=== PATIENT | female | born 1960 | race Caucasian/White ===

== ENCOUNTER 2022-10-20 11:01 | Outpatient (CLI) | payer BC, SELFPAY | END 2022-10-20 11:02 | disposition home or self-care (01) | PROVIDERS: PCP Family Medicine; Visit Provider Nurse Practitioner Family | DX: M25.473 Effusion, unspecified ankle (principal) | CPT/HCPCS: 84550; 86140; 86431; 86618 ==

== ENCOUNTER 2023-08-26 09:59 | Outpatient (RCR) | payer BC, SELFPAY | END 2023-11-21 13:33 | disposition home or self-care (01) | PROVIDERS: PCP Family Medicine; Visit Provider Family Medicine | DX: M25.511 Pain in right shoulder (principal); G89.29 Other chronic pain; M25.611 Stiffness of right shoulder, not elsewhere classified; M62.81 Muscle weakness (generalized); Z51.89 Encounter for other specified aftercare | CPT/HCPCS: 97110; 97161 ==

== ENCOUNTER 2024-07-24 09:30 | Outpatient (CLI) | payer BC, SELFPAY | END 2024-07-24 09:31 | disposition home or self-care (01) | LOC: NFLDUCREF 09:30 | PROVIDERS: PCP Family Medicine; Visit Provider Physician Assistant | DX: M10.9 Gout, unspecified (principal) | CPT/HCPCS: 84550 ==

== ENCOUNTER 2025-01-26 18:41 | Emergency (ER) | payer BC, SELFPAY ==
--- OUTSIDE RECORDS SUMMARY | 2025-01-26 18:43 | XMS_ITS | Clinical Summary ---
Author Organization [facility] Address [address] [place] [address] Care Team Providers Care Fire Sprinkler Designer Name Role Phone Pam Dewitt DO Primary Care Provider [phone] Allergies No known active allergies Medications No known medications Active Problems Problem Noted Date Diagnosed Date Family history of colonic polyps 06/03/2024 Overview (06/03/2024): Colonoscopy 05/2024 diverticuli, repeat in 5 years Type 2 diabetes mellitus wit hout complication, without long-term current use of insulin 05/19/2021 Anemia 05/02/2021 Hiatal hernia 04/13/2020 Gastroesophageal reflux disease with esophagitis 04/13/2020 H/O LEEP 04/03/2019 Overview (11/16/2024): Per 10/28/2024 OV: History of ASC-H pap and AROLDO-1 colposcopy per care everywhere. Her last 2 pap smears have been NIL and negative HPV. LEEP per surgical hx 12/2020 UNS/HPV negative 01/2024 NIL/HPV negative 10/2024 UNS/HPV negative. Plan: Pap/HPV due 10/2025. 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 Resolved Problems Problem Noted Date Diagnosed Date Resolved Date Prediabetes 05/02/2021 05/19/2021 Encounters Date Type Department Care Team Description 01/26/2025 Nurse Triage [facility] [address] [facility] [address] Sir Dewitti Dotty, DO Leg Pain/problem 12/25/2024 8:10 AM CDT Office Visit [facility] [address] [facility] [place] [address] Estephania Ordonez PA Follow Up (Diverticulitis) 12/25/2024 Travel 12/22/2024 1:30 PM CDT Ancillary Procedure [facility] [address] [facility] [address] 12/22/2024 12:55 PM CDT Office Visit [facility] [address] [facility] [address] Estephania Ordonez PA Abdominal Pain 12/22/2024 Travel 12/22/2024 Nurse Triage [facility] [address] [place] [address] Sir Dewitti Dotty, DO Abdominal Pain 11/18/2024 1:00 PM CDT Ancillary Procedure [facility] [address] [facility] [address] 11/18/2024 Orders Only [address] [facility] [place] [address] Renate Pam Dotty, DO <No scans attached> 11/18/2024 Telephone [facility] [address] [place] [address] Sir Dewitti Dotty, DO Results 11/18/2024 Travel 11/13/2024 Orders Only [facility] Scanner 1 scan: (1-Ord) [facility], DIABETIC EYE EXAM REPORT, 11/13/2024 11/09/2024 11:25 AM CDT Office Visit [facility] [address] [facility] [place] [address] Sir Dewitti Dotty, DO UTI (Blood in urine x4-5 days? 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 Cousin x2 , Pat. Cousin x1 Unknown Paternal Grandfather Unknown Paternal Grandmother Good Health Sister 1 Colon polyps Sister 2 Good Health Son Anesthesia Malignant Hyperthermia No Family History Blood Disease No Family History Cancer-ovarian No Family History Relation Name Status Comments Brother Daughter 1 Daughter 2 Father Maternal Grandfather Maternal Grandmother Mother Alive Other Cousins Paternal Grandfather Paternal Grandmother Sister 1 Sister 2 Son Social History Tobacco Use Types Packs/Day Years Used Date Smoking Tobacco: Never Smokeless Tobacco: Never Tobacco Cessation:Counseling Given: Yes Alcohol Use Standard Drinks/Week Comments Never 0 (1 standard drink = 0.6 oz pur e alcohol) PHQ-2 Answer Date Recorded PHQ-2 TOTAL SCORE 0 10/28/2024 Social Connections Answer Date Recorded Do you often feel lonely or isolated from those around you? 0 12/22/2024 Financial Resource Strain Answer Date R ecorded Difficulty of Paying Living Expenses 3 12/22/2024 Difficulty of Paying Living Expenses Not on file 12/22/2024 Food Insecurity Answer Date Recorded Do you worry your food will run out before you are able to buy more? 1 12/22/2024 Transportation Needs Answer Date Record ed Does lack of transportation keep you from medica l appointments? 1 12/22/2024 Does lack of transportation keep you from work, meetings or getting things that you need? 1 12/22/2024 Housing Stability Answer Date Recorded What is your housing situation today? 1 12/22/2024 Utilities Answer Date Recorded Do you have trouble paying f or utilities (for example, heat, electricity, water, phone)? 1 12/22/2024 Comments No Sex and Gender Information Value Date Recorded Sex Assigned at Not on file Legal Sex Female 4:41 PM CDT Gender Identity Not on file Sexual Orientation Not on file Obstetrics History Last Filed Vital Signs Vital Sign Reading Time Taken Comments Blood Pressure 125/81 12/25/2024 8:19 AM CDT Pulse 61 12/25/2024 8:19 AM CDT Temperature 36.7 C (98 F) 12/22/2024 1:00 PM CDT Respiratory Rate 16 07/24/2021 9:03 AM PLUM PACKER Oxygen Saturation 96% 12/25/2024 8:19 AM CDT Inhaled Oxygen Concentration - - Weight 88.8 kg (195 lb 12.8 oz) 025 11:29 AM CDT Height 159 cm (5' 2.6) 10/28/2024 1:12 PM CDT Body Mass Index 35.13 10/28/2024 1:12 PM CDT Plan of Treatment Upcoming Encounters Date Type Department Care Team (Late st Contact Info) Description 02/04/2025 7:40 AM CDT Office Visit [facility] [address] [place] [address] Pam Dewitt, [address] [place] [address] 02/10/2025 1:20 PM CDT Office Visit [facility] [address] [facility] [address] [place] [address] [address] [facility] [address] [facility] [place], [place] [id number] Health Maintenance Due Date Last Done Comments Pneumococcal series for age 50+ (1 of 2 - PCV) 1979 Zoster (shingles) series for age 50+ (1 of 2) 2010 Tetanus booster 06/02/2019 06/02/2009 RSV vaccine for adults or (1 - Risk 60-74 years 1-dose series) 2020 COVID-19 vaccine series ( season) 2024 Influenza Vaccine (#1) 2025 5, 08/04/2013, 06/12/2012 Mammogram for age 45-75 09/07/2025 09/07/19 25, 08/02/2023, 07/04/2022, Additional history exists BMI (ht and wt on same day) for age 18+ 10/28/2025 10/28/2024, 05/26/2024, 08/13/2023, Additional history exists Depression screening for age 12+ 10/28/2025 10/28/2024, 06/27/2022, 06/12/2021, Additional history exists Pap test for age 21-65 10/28/2025 , 02/06/2021, 02/06/2021, Additional history exists Colonoscopy through age 75 06/03/2029 06/03/2024, Lipids for age 45-75 10/28/2029 10/28/2024, 06/27/20 22 HIV for age 15-65 Completed 10/28/2024 Hepatitis C screening for age 18-79 Completed 10/28/2024 Hepatitis B series for 19+ Aged Out N o longer eligible based on patient's age to complete this topic Procedures Procedure Name Priority Date/Time Associated Diagnosis Comments CT ABDOMEN PELVIS W STAT 12/22/2024 1 :56 PM CDT Abdominal pain, LLQ (left lower quadrant) US PELVIS COMPLETE TA AND TV TREY 11/18/2024 1:30 PM CDT Abnormal uterine bleeding SCAN-EYE EXAM 11/13/2024 12:00 AM CDT URINALYSIS MICROSCOPIC Routine 11/09/2024 11:57 AM CDT Hematuria, unspecified type URINE CULTURE Routine 11/09/2024 11:57 AM CDT Hematuria, unspecified type URINALYSIS MACROSCOPIC - [facility] ONLY POC DIP ([facility]) Routine 11/09/2024 11:57 AM CDT Hematuria, unspecified type CHIP FRIER THIN PREP PAP SCREEN IMAGED- Unsuccessful Attempt Routine 10/28/2024 2:24 PM CDT Pap smear for cervical cancer screening HPV HIGH RISK Routine 10/28/2024 2:24 PM CDT Pap smear for cervical cancer screening ANTI HCV Routine 10/28/2024 2:15 PM CDT Need for hepatitis C screening test ANTI HIV 1/2 Routine 10/28/2024 2:15 PM CDT Screening for HIV (human immunodeficiency virus) LIPID PANEL W REFLEX MEASURED LDL Routine 10/28/2024 2:15 PM CDT Type 2 diabetes mellitus without complication, without long-term current use of insulin (HC) BASIC METABOLIC PANEL Routine 10/28/2024 2:15 PM CDT Type 2 diabetes mellitus without complication, without long-term current use of insulin (HC) HEMOGLOBIN A1C MONITORING (POCT) Routine 10/28/2024 2:14 PM CDT Type 2 diabetes mellitus without complication, without long-term current use of insulin (HC) XR MAMMO JASWANT BILAT SCREEN Routine 09/07/2024 8:57 AM PLUM PACKER Visit for screening mammogram SCAN-COLONOSCOPY 06/03/2024 12:0 0 AM PLUM PACKER from Last 3 Months or Most Recently Relevant to Health Maintenance Results * CT ABDOMEN PELVIS W (12/22/2024 1:56 PM CDT) Anatomical Region Laterality Modality Abdomen, Pelvis, AORTA, LIVER, SPLEEN Computed Tomography 12/22/2024 2:12 PM CDT Impressions 12/22/2024 2:12 PM CDT Findings suggestive of uncomplicated sigmoid diverticulitis. Please note that all CT scans at this facility use dose modulation, iterative reconstruction, and/or weight-based dosing when appropriate to reduce radiation dose to as low as reasonably achievable. Dictated by Rommel Gamez MD @ 12/22/2024 2:12:43 PM (Electronically Signed) Narrative 12/22/2024 2:12 PM CDT For Patients: As a result of the Cures Act, medical imaging exams and procedure reports are released immediately into your electronic medical record. You may view this report before your referring provider. If you have questions, please contact your health care provider. INDICATION: Left lower quadrant pain. TECHNIQUE: CT abdomen and pelvis acquired with 100 cc Omnipaque 350 IV contrast. COMPARISON: None. FINDINGS: Lower chest: Mild subsegmental atelectasis. Liver: Unremarkable. Normal in size and attenuation. No suspicious masses. Gallbladder and bile ducts: Cholecystectomy. No biliary dilatation. Pancreas: Unremarkable. No mass or inflammation. Spleen: Unremarkable. Normal in size. No masses. Adrenal glands: Unremarkable. No nodules. Kidneys: Unremarkable. No suspicious masses, stones, or hydronephrosis. GI tract: Moderate hiatal hernia. Normal in caliber. Sigmoid diverticuli with mild perisigmoid inflammatory changes (2/187). No associated focal fluid collection. Normal appendix. Vasculature: Mild vascular calcifications. Abdominal aorta is normal in caliber. Mesenteric arteries are patent. Lymph nodes: No pathologic lymphadenopathy. Peritoneum/Abdominal Wall: No pneumoperitoneum. Pelvis: Bladder is unremarkable. Reproductive organs are unremarkable. Bones: Unremarkable for age. Procedure Note Rommel Gamez MD - 12/22/2024 For Patients: As a result of the s Act, medical imagingexams and procedure reports are released immediately into your electronicmedical record. You may view this report before your referring provider.If you have questions, please contact your health care provider. INDICATION: Left lower quadrant pain. TECHNIQUE: CT abdomen and pelvis acquired with 100 cc Omnipaque 350 IV contrast. COMPARISON: None. FINDINGS: Lower chest: Mild subsegmental atelectasis. Liver: Unremarkable. Normal in size and attenuation. No suspicious masses. Gallbladder and bile ducts: Cholecystectomy. No biliary dilatation. Pancreas: Unremarkable. No mass or inflammation. Spleen: Unremarkable. Normal in size. No masses. Adrenal glands: Unremarkable. No nodules. Kidneys: Unremarkable. No suspicious masses, stones, or hydronephrosis. GI tract: Moderate hiatal hernia. Normal in caliber. Sigmoid diverticuliwith mild perisigmoid inflammatory changes (2/187). No associated focalfluid collection. Normal appendix. Vasculature: Mild vascular calcifications. Abdominal aorta is normal incaliber. Mesenteric arteries are patent. Lymph nodes: No pathologic lymphadenopathy. Peritoneum/Abdominal Wall: No pneumoperitoneum. Pelvis: Bladder is unremarkable. Reproductive organs are unremarkable. Bones: Unremarkable for age. IMPRESSION: Findings suggestive of uncomplicated sigmoid diverticulitis. Please note that all CT scans at this facility use dose modulation,iterative reconstruction, and/or weight-based dosing when appropriate toreduce radiation dose to as low as reasonably achievable. Dictated by Rommel Gamez MD @ 12/22/2024 2:12:43 PM (Electronically Signed) Estephania POTTS CT Final Result * US PELVIS COMPLETE TA AND TV (11/18/2024 1:30 PM CDT) Anatomical Region Laterality Modality Pelvis Ultrasound 11/18/2024 4:15 PM CDT Impressions 11/18/2024 4:15 PM CDT 1. Normal postmenopausal endometrial stripe thickness at 4 mm. 2. Intramural or submucosal right uterine body fibroid measuring up to 2.0 cm, previously measuring up to 2.4 cm. Dictated by Reji Pagan MD @ 11/18/2024 4:15:25 PM (Electronically Signed) Narrative 11/18/2024 4:15 PM CDT For Patients: As a result of the Century Cures Act, medical imaging exams and procedure reports are released immediately into your electronic medical record. You may view this report before your referring provider. If you have questions, please contact your health care provider. INDICATION: Abnormal uterine bleeding TECHNIQUE: Transabdominal and transvaginal scanning was performed. Transvaginal scanning was performed to optimally evaluate the endometrium and adnexa. Ovarian blood flow was evaluated with color-flow and pulsed Doppler. COMPARISON: Pelvic ultrasound of 09/21/2021 FINDINGS: The uterus is normal in size and shape. The uterus measures 7.1 x 3.5 x 3.5 cm. An intramural or submucosal right uterine body fibroid measuring 2.0 x 2.0 x 1.9 cm is demonstrated. This was previously measured at 2.4 x 1.9 x 1.6 cm. The postmenopausal endometrial stripe is normal in thickness at 4 mm. The ovaries are normal in size. The right ovary measures 1.8 x 1.5 x 0.9 cm and left 1.4 x 1.4 x 0.9 cm. Ovarian blood flow is demonstrated with color-flow and pulsed Doppler. No adnexal mass is evident. No free fluid is demonstrated. Procedure Note Reji Pagan MD - 11/18/2024 For Patients: As a result of the Century Cures Act, medical imagingexams and procedure reports are released immediately into your electronicmedical record. You may view this report before your referring provider.If you have questions, please contact your health care provider. INDICATION: Abnormal uterine bleeding TECHNIQUE: Transabdominal and transvaginal scanning was performed. Transvaginalscanning was performed to optimally evaluate the endometrium and adnexa.Ovarian blood flow was evaluated with color-flow and pulsed Doppler. COMPARISON: Pelvic ultrasound of 09/21/2021 FINDINGS: The uterus is normal in size and shape. The uterus measures 7.1 x 3.5 x3.5 cm. An intramural or submucosal right uterine body fibroid measuring2.0 x 2.0 x 1.9 cm is demonstrated. This was previously measured at 2.4 x1.9 x 1.6 cm. The postmenopausal endometrial stripe is normal in thicknessat 4 mm. The ovaries are normal in size. The right ovary measures 1.8 x 1.5 x 0.9cm and left 1.4 x 1.4 x 0.9 cm. Ovarian blood flow is demonstrated withcolor-flow and pulsed Doppler. No adnexal mass is evident. No free fluid is demonstrated. IMPRESSION: 1. Normal postmenopausal endometrial stripe thickness at 4 mm. 2. Intramural or submucosal right uterine body fibroid measuring up to 2.0cm, previously measuring up to 2.4 cm. Dictated by Reji Pagan MD @ 11/18/2024 4:15:25 PM (Electronically Signed) us Pam Dewitt DO US Final Result * SCAN-EYE EXAM (11/13/2024 12:00 AM CDT) us Scanner OTHER Final Result * POCT Urinalysis Dipstick Only [[id number]] (11/09/2024 11:57 AM CDT) PH 5.5 5.0 - 8.0 [facility] SPECIFIC GRAVITY 1.025 1.001 - 1.035 [facility] GLUCOSE NEGATIVE NEGATIVE [facility] BILIRUBIN NEGATIVE NEGATIVE [facility] KETONES NEGATIVE NEGATIVE [facility] OCCULT BLOOD NEGATIVE NEGATIVE [facility] PROTEIN NEGATIVE NEGATIVE [facility] NITRITE NEGATIVE NEGATIVE [facility] LEUKOCYTE ESTERASE NEGATIVE NEGATIVE [facility] Urine URINE SPECIMEN / Unknown 11/09/2024 11:57 AM CDT 11/09/2024 11:57 AM CDT us Pam Dewitt DO URINE Final Result Performing Organization Address City/State/[facility] Co de Phone Number [facility] [address] [place] [address], [facility] [address] [place] [address] * URINALYSIS MICROSCOPIC [77597.1] - routine (11/09/2024 11:57 AM CDT) RBC 0-2 0-2, None Seen /HPF 11/10/2024 1:10 AM CDT [facility] WBC 0-2 0-2, 3-5, None Seen /HPF 11/10/2024 1:10 AM CDT [facility] BACTERIA None Seen None Seen, Rare, Few Bacteria/ HPF 11/10/2024 1:10 AM CDT [facility] EPITHELIAL CELLS None Seen None Seen, Few Epi/HPF 11/10/2024 1:10 AM CDT [facility] HYALINE CASTS 0-2 0-2, 3-5 /LPF 11/10/2024 1:10 AM CDT [facility] Urine URINE SPECIMEN / Unknown Non-Blood / Unknown 11/09/2024 11:57 AM CDT 11/09/2024 11:57 AM CDT Pam Dewitt DO URINE Final Result Performing Organization Address City/[facility]/ZIP Co de Phone Number [facility] [address] [place] [address], [place] * URINE CULTURE [73915.2] (11/09/2024 11:57 AM CDT) CULTURE No growth (<1,000 CFU/mL) 11/11/2024 7:56 AM CDT [facility] Urine URINE SPECIMEN / Unknown Non-Blood / Unknown 11/09/2024 11:57 AM CDT 11/09/2024 11:57 AM CDT Pam Dewitt DO MICROBIOLOGY Final Result Performing Organization Address [facility] Co de Phone Number [facility] [address] [place] [address], [place] * CHIP FRIER THIN PREP PAP SCREEN IMAGED (10/28/2024 2:24 PM CDT) - Unsuccessful Attempt Case Report Gynecologic Cytology Report Case: [id number] Authorizing Provider: Nina Curtis MD Collected: 10/28/2024 1424 Ordering Location: [facility] Received: 10/28/2024 1424 Clinic First Screen: Amarilis Ramon Rescreen: Galen Polk Specimen: CHIP FRIER ThinPrep Vial Screening, Cervical 11/15/2024 10:27 AM CDT [facility] INTERPRETATION/ RESULT UNSATISFACTORY FOR EVALUATION (UNS) (none) 11/15/2024 10:27 AM CDT [facility] at 1027 CDT SPECIMEN ADEQUACY Specimen processed and examined, but unsatisfactory for evaluation of epithelial abnormality because of: Scant cellularity 11/15/2024 10:27 AM CDT [facility] HPV REQUEST HPV and PAP 11/15/2024 10:27 AM CDT [facility] Date of LMP n/a 11/15/2024 10:27 AM CDT [facility] Last Pap Date 02/06/21 11/15/2024 10:27 AM CDT [facility] Last Pap Result NIL 10:27 AM CDT [facility] Abnormal Pap or [place] Bx in last 5 years No 11/15/2024 10:27 AM CDT [facility] Menstrual Status Postmenopausal 11/15/2024 10:27 AM CDT [facility] [place] Bx Done Today No 11/15/2024 10:27 AM CDT [facility] Additional Information None given 11/15/2024 10:27 AM CDT [facility] Comment: Cytology is screened at [facility] - [address] [address] and [facility] - [address] [place] [address] and [facility] - [address] [place] [address] Interpreted at [facility] - [address], [place] [address] Automated Review Successful 11/15/2024 10:27 AM T [facility] Comment:Specimen processed s uccessfully by automated clothes ironer device, ThinPrep Imaging System, [employer] ANCILLARY TESTING CHIP FRIER HPV Ordered, Please see separate report 11/15/2024 10:27 AM T [facility] Note The pap test is a screening technique, not a diagnostic procedure. It is used primarily to screen for squamous cancers and precursor lesions. Published studies have shown that it is subject to both false negative and false positive results. The pap test should not be used as the sole means to diagnose or exclude pre-malignant and malignant lesions. 11/15/2024 10:27 AM CDT [facility] Other (Cervical) Non-Blood / Unknown 10/28/2024 2:24 PM CDT 10/28/2024 2:24 PM CDT Nina Curtis MD PATHOLOGY/CYTOLOGY Final Re sult Performing Organization Address City/[facility]/ZIP Co de Phone Number [facility] [address] [place] [address], * HPV HIGH RISK (10/28/2024 2:24 PM CDT) TYPE 16 Negative Negative 10/31/2024 1:04 PM CDT [facility] TYPE 18 Negative Negative 10/31/2024 1:04 PM CDT [facility] OTHER HIGH RISK TYPES Negative Negative 10/31/2024 1:04 PM CDT [facility] Other (Cervical) Non-Blood / Unknown 10/28/2024 2:24 PM CDT 10/29/2024 9:00 AM CDT Narrative [facility] - 10/31/2024 1:04 PM CDT HPV types 16, 18, 31, 33, 35, 39, 45, 51, 52, 56, 58, 59, 66 and 68 DNA were undetectable or below the pre-set threshold. Methodology: Gage Brien 4800 HPV Test Nina Curtis MD MICROBIOLOGY Final Resul t Performing Organization Address [facility]/ZIP Co de Phone Number [facility] [address] [place] [address], * LIPID PANEL W REFLEX MEASURED LDL (10/28/2024 2:15 PM CDT) CHOLESTEROL, TOTAL 175 <200 mg/dL [facility] HDL CHOLESTEROL 56 > OR = 50 mg/dL [facility] TRIGLYCERIDES 118 <150 mg/dL [facility] LDL-CHOLESTEROL 98 mg/dL (calc) [facility] Comment: Reference range: <100 Desirable range <100 mg/dL for primary prevention; <70 mg/dL for patients with CHD or diabetic patients with > or = 2 CHD risk factors. LDL-C is now calculated using the Rukhsana calculation, which is a validated novel method providing better accuracy than the Friedewald equation in the estimation of LDL-C. Tone SS et al. SULEIMAN. 2013;310(19): 6351-8540 (http://education.[employer]/faq/TDY793) CHOL/HDLC RATIO 3.1 <5.0 (calc) [facility] NON HDL CHOLESTEROL 119 <130 mg/dL (calc) [facility] Comment: For patients with diabetes plus 1 major ASCVD risk factor, treating to a non-HDL-C goal of <100 mg/dL (LDL-C of <70 mg/dL) is considered a therapeutic option. Blood BLOOD SPECIMEN / Unknown 10/28/2024 2:15 PM CDT 10/28/2024 2:17 PM CDT us Nina Curtis MD CHEMISTRY Final Resul t [employer] [facility] [address] [place] [address], [facility] [address] * ANTI HCV (10/28/2024 2:15 PM CDT) HEPATITIS C ANTIBODY NON-REACTI VE NON-REACT RAGHAVENDRA [facility] Comment: HCV antibody was non-reactive. There is no laboratory evidence of HCV infection. In most cases, no further action is required. However, if recent HCV exposure is suspected, a test for HCV RNA (test code 46042) is suggested. For additional information please refer to http://Dealo.[employer]/faq/AJH31v8 (This link is being provided for informational/ educational purposes only.) Blood BLOOD SPECIMEN / Unknown 10/28/2024 2:15 PM CDT 10/28/2024 2:17 PM CDT Nina Curtis MD SEND OUTS Final Resul t Performing Organization Address [facility] Co de Phone Number [employer] [facility] [address] [facility] [address], [place] [address] [facility] [address] * ANTI HIV 1/2 [23079.0] (10/28/2024 2:15 PM CDT) HIV AG/AB, 4TH GEN NON-REACT RAGHAVENDRA NON-REACT RAGHAVENDRA [facility] [place] Comment: HIV-1 antigen and HIV-1/HIV-2 antibodies were not detected. There is no laboratory evidence of HIV infection. PLEASE NOTE: This information has been disclosed to you from records whose confidentiality may be protected by state law. If your state requires such protection, then the state law prohibits you from making any further disclosure of the information without the specific written consent of the person to whom it pertains, or as otherwise permitted by law. A general authorization for the release of medical or other information is NOT sufficient for this purpose. For additional information please refer to http://education.[employer].Forcura/faq/FUK624 (This link is being provided for informational/ educational purposes only.) The performance of this assay has not been clinically validated in patients less than 2 years old. Blood BLOOD SPECIMEN / Unknown 10/28/2024 2:15 PM CDT 10/28/2024 2:17 PM CDT Nina Curtis MD SEND OUTS Final Resul t [employer] [facility] [address] [facility] [place] [address], [place] [phone] [place] [address] [facility] [place] [address] * BASIC METABOLIC PANEL (10/28/2024 2:15 PM CDT) Pathologist [facility] GLUCOSE 91 65 - 99 mg/dL [facility] Comment: Fasting reference interval UREA NITROGEN (BUN) 10 7 - 25 mg/dL [facility] CREATININE 0.80 0.50 - 1.05 mg/dL [facility] EGFR 82 > OR = 60 mL/min/1. 73m2 [facility] BUN/CREATININE RATIO SEE NOTE: 6 - 22 (calc) [facility] Comment: Not Reported: BUN and Creatinine are within reference range. SODIUM 138 135 - 146 mmol/L [facility] POTASSIUM 4.0 3.5 - 5.3 mmol/L [facility] CHLORIDE 104 98 - 110 mmol/L [facility] CARBON DIOXIDE 26 20 - 32 mmol/L [facility] ELECTROLYTE BALANCE 8 7 - 17 mmol/L (calc) [facility] CALCIUM 9.2 8.6 - 10.4 mg/dL [facility] Blood BLOOD SPECIMEN / Unknown 10/28/2024 2:15 PM CDT 10/28/2024 2:17 PM CDT us Nina Curtis MD CHEMISTRY Final Resul t [employer] [facility] [address] [place] [address], [facility] [address] [place] [address] * (ABNORMAL) HEMOGLOBIN A1C MONITORING (POCT) (10/28/2024 2:14 PM CDT) [facility] POC HEMOGLOBIN A1C 6.6(H) <6.0 % OF TOTAL HGB [facility] Comment: Any point of care results exhibiting inconsistency with the patient's clinical status should be repeated using a different testing method. Blood BLOOD SPECIMEN / Unknown 10/28/2024 2:14 PM CDT 10/28/2024 2:15 PM CDT us Nina Curtis MD CHEMISTRY Final Resul t [facility] [address] [place] [address], [place] [phone] [facility] [address] [place] [address] * XR MAMMO JASWANT BILAT SCREEN (09/07/2024 8:57 AM PLUM PACKER) Anatomical Region Laterality Modality BREASTS, Breast Left, Breast Right Bilateral Mammography Impressions 09/07/2024 11:33 AM PLUM PACKER There is no radiographic evidence for malignancy. Recommend annual mammograms. MAMMOGRAM ASSESSMENT: ACR 1 Negative PATIENTS: You will also receive a letter with your examination results in an easy to read format. If you have questions about your results, please contact your referring provider. Narrative 09/07/2024 11:33 AM PLUM PACKER For Patients: As a result of the Cures Act, medical imaging exams and procedure reports are released immediately into your electronic medical record. You may view this report before your referring provider. If you have questions, please contact your health care provider. XR MAMMO JASWANT BILAT SCREEN [[id number]] CLINICAL HISTORY: This is an asymptomatic 64 y.o. patient. INDICATION FOR EXAM: Mammogram Screening. TECHNIQUE: CC & MLO views were obtained. This study was evaluated with the assistance of Computer-Aided Detection. Breast Tomosynthesis was used in interpretation. COMPARISON FILM: Yes 08/02/23 [facility] [place] 07/04/22 [facility] FINDINGS: There are scattered areas of fibroglandular density. There are no dominant masses, suspicious micro calcifications or areas of architectural distortion. 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
[2025-01-26 18:48] VITALS: BP 174/78; PULSE 74; RESP 18; TEMP 36.8; O2SAT 97; BMI 32.2
--- NOTE | 2025-01-26 19:06 | CRLHL7_ITS ---
For Patients: As a result of the Century Cures Act, medical imaging exams and procedure reports are released immediately into your electronic medical record. You may view this report before your referring provider. If you have questions, please contact your health care provider. INDICATION: Right-sided chest pain. TECHNIQUE: Chest 2 view. COMPARISON: None. FINDINGS: Cardiovascular: Heart size and pulmonary vasculature are within normal limits. Lungs and pleural spaces: The lungs are clear. No sign of pleural effusion. No pneumothorax identified. Bones and soft tissues: Mild eventration of the right anterior hemidiaphragm. Surgical clips right upper quadrant. Probable small hiatal hernia. Degenerative changes of the spine. IMPRESSION: No acute cardiopulmonary findings. Dictated by Martha Mota MD @ 01/26/2025 7:52:41 PM (Electronically Signed)
[2025-01-26 19:48] LABS: Hematocrit 44.0 % (33.0-51.0); Hemoglobin* 14.0 gm/dL (12.0-16.0); Immature Granulocytes Abs Auto 0.01 K/uL (0.00-0.30); Immature Granulocytes Pct Auto 0.2 %; Lymphocytes Absolute Auto 2.41 K/uL (0.90-2.90); Mean Corpuscular HGB Conc 32 gm/dL (32-36); Mean Corpuscular Hemoglobin 27 pg (26-34); Mean Corpuscular Volume 85 fL (80-100); RDW Coefficient of Variation % 13.9 % (11.5-15.5); Red Blood Count 5.21 m/uL (4.00-5.20); White Blood Count* 5.60 K/uL (4.50-11.00)
[2025-01-26 19:51] LABS: Slide Review Reflex No
--- NOTE | 2025-01-26 19:54 | ED.GENADULT ---
HPI - General Adult General Date Seen: 01/26/25 Chief complaint: Unspecified Complaint, Adult Stated complaint: Chest pain and lower back pain Time Seen by Provider: 01/26/25 18:58 Source: patient Mode of arrival: ambulatory Limitations: no limitations History of Present Illness HPI narrative: Patient is a 64 year female presenting for right thigh discomfort but was sent to the emergency department because she had an episode of chest pain yesterday. She states she was diagnosed with sciatica in the past and was just seen for it at her primary care office 3 weeks ago. Has had issues with sciatica multiple times in the past but states this thigh pain is new. States since then she will feel like the leg will sometimes want to give out. It has not given out yet. Denies any saddle anesthesia, urinary retention, urinary or bowel incontinence, fevers, chills. States when she was trying to call the clinic today to schedule an appointment she mentioned that she had an episode of right-sided chest pain. Due to this she was told to come to the emergency department. She has not had any further chest pain. After the episode chest pain she also had a short episode of a headache. She this chest pain 1 other time 1 week ago. Other than that she states she had it several years ago. Due to the chest pain she was told to come to the emergency department. No history of blood clots. No history of heart disease. No other concerns noted at this time. Denies shortness of breath, weakness, numbness, abdominal pain. No other concerns noted at this time Related Data Home Medications ?Medication ?Instructions ?Recorded ?Confirmed No Known Home Medications 01/26/25 01/26/25 Allergies Allergy/AdvReac Type Severity Reaction Status Date / Time No Known Drug Allergies Allergy Verified 01/26/25 18:53 Review of Systems Status of ROS: Reports: 10 or more systems reviewed and unremarkable except as noted in History and below [facility] Medical History (Updated 01/26/25 @ 20:37 by Tate Aguilar DO) Encounter for screening for severe acute respiratory syndrome coronavirus 2 (SARS-CoV-2) infection ?Z11.52 - Encounter for screening for COVID-19 (ICD-10) Ankle swelling ?M25.473 - Effusion, unspecified ankle (ICD-10) Surgical History (Updated 11/22/23 @ 09:25 by Hayde Burt ~ [facility], [facility]) History of gastric surgery (2019) ?Z98.890 - Other specified postprocedural states (ICD-10) History of laparoscopic cholecystectomy (10/05/21) ?Z90.49 - Acquired absence of other specified parts of digestive tract (ICD-10) Social History (Updated 11/22/23 @ 09:25 by Hayde Burt ~ [facility], [facility]) Smoking Status: Never smoker Do you use any of these nicotine containing products: None Second hand tobacco smoke exposure: No How often do you have a drink containing alcohol: never AUDIT-C Alcohol total score: 0 Non-prescribed substance use: denies use service: No Exam Narrative: Exam Narrative: Const: Well-nourished, Well-developed, in mild distress Eyes: PERRL, no conjunctival injection, and symmetrical lids HENT: Atraumatic external nose and ears. Moist mucous membranes. Neck: Symmetric, trachea midline, No thyromegaly. CVS: RRR, No murmurs or gallops. Peripheral pulses 2+ and equal in all extremities RESP: Unlabored respiratory effort. Clear to auscultation bilaterally. GI: Nontender/Nondistended, No rebound or guarding. MSK:Extremities w/o deformity, Normal Active ROM. Mild tenderness to right thigh Skin: Warm, Dry. No rashes or lesions. Neuro: Normal Muscle tone, No focal neurological deficits. Psych: Awake, Alert, & Oriented x3. Appropriate mood and affect. Const: Vital Signs, click to edit/add: Vital Signs - 24 hr 01/26/25 18:48 Temperature 98.2 F Pulse Rate [Pulse Oximeter] 74 Respiratory Rate 18 Blood Pressure [Ri ght Upper Arm] 174/78 H Pulse Oximetry 97 Oxygen Delivery Me thod Room Air Course Vital Signs Vital signs: Initial Vital Signs Temperature 98.2 F 01/26/25 18:48 Temperature Source Temporal Artery Scan 01/26/25 18:48 Pulse Rate 74 01/26/25 18:48 Respiratory Rate 18 01/26/25 18:48 Blood Pressure 174/78 H 01/26/25 18:48 Blood Pressure Mean 110 H 01/26/25 18:48 Blood Pressure Position Sitting 01/26/25 18:48 Pulse Oximetry 97 01/26/25 18:48 Oxygen Delivery Method Room Air 01/26/25 18:48 Vital Signs Temperature 98.2 F 01/26/25 18:48 Pulse Rate 74 01/26/25 18:48 Respiratory Rate 18 01/26/25 18:48 Blood Pressure 174/78 H 01/26/25 18:48 Pulse Oximetry 97 01/26/25 18:48 Oxygen Delivery Method Room Air 01/26/25 18:48 Temperature 98.2 F 01/26/25 18:48 Pulse Rate 74 01/26/25 18:48 Respiratory Rate 18 01/26/25 18:48 Blood Pressure 174/78 H 01/26/25 18:48 Pulse Oximetry 97 01/26/25 18:48 Oxygen Delivery Method Room Air 01/26/25 18:48 Medical Decision Making MDM Narrative Medical decision making narrative: Patient is 64-year-old female presenting for chest pain. The differential diagnosis of chest pain is broad and includes common etiologies such as musculoskeletal strain, GERD, pneumonia, etc. More serious etiologies considered include PE, coronary artery disease, pneumothorax, aortic dissection, aortic aneurysm. Considering her otherwise stable appearing vital signs in the fact that the symptoms have not came back do not believe this is a PE, aortic dissection, aortic aneurysm. Will do an EKG and troponin to look for any abnormalities of the heart. Chest x-ray ordered to look for pneumonia or pneumothorax. Also order a COVID/flu/RSV, BMP, CBC, magnesium. For the thigh pain this seems most likely a nerve issue. She has a history of sciatica and described as a burning sensation. Do not believe this is a DVT. No associated swelling. Chest x-ray reviewed by myself radiologist shows no concerning abnormalities. Lab work returned showing no acute concerning abnormalities. Considering symptoms have been yesterday I do not believe repeat troponin is necessary. EKG shows no concerning findings. On my review vital signs are stable throughout time in in the emergency department. Oximetry stayed in the mid to high 90s. monitoring tech showed no concerning arrhythmias. Overall she is feeling well from a chest pain standpoint I believe she is safe for discharge. This thigh pain seems to be a nerve issue. I informed her to try and wear looser pants in take NSAIDs. She will follow up with primary care provider for this Lab Data Labs: Lab Results 01/26/25 01/26/25 Range/Units 19:35 19:48 WBC 5.60 (4.50-11.00) K/uL RBC 5.21 H (4.00-5.20) m/uL Hgb 14.0 (12.0-16.0) gm/dL Hct 44.0 (33.0-51.0) % MCV 85 (80-100) fL MCH 27 (26-34) pg MCHC 32 (32-36) gm/dL RDW Coeff of Hermilo 13.9 (11.5-15.5) % Plt Count 226 (140-440) K/uL Neut % (Auto) 46.5 (42.0-72.0) % Lymph % (Auto) 43.0 (20-44) % [place] % (Auto) 8.0 (0.0-11.0) % Eos % (Auto) 1.8 (0.0-7.0) % Baso % (Auto) 0.5 (0.0-3.0) % Neut # (Auto) 2.60 (1.7-7.0) K/uL Lymph # (Auto) 2.41 (0.90-2.90) K/uL [place] # (Auto) 0.40 (0.00-0.90) K/UL Eos # (Auto) 0.10 (0.00-0.50) K/uL Baso # (Auto) 0.03 (0.00-0.30) K/uL Abs Immat Gran (auto) 0.01 (0.00-0.30) K/uL Imm/Tot Granulo (auto) 0.2 % Sodium 139 (135-149) mmol/L Potassium 4.2 (3.6-5.1) mmol/L Chloride 106 (96-114) mmol/L Carbon Dioxide 24 (20-32) mmol/L Anion Gap 9 (7-15) mEq/L BUN 17 (7-30) mg/dL Creatinine 0.7 (0.5-1.5) mg/dL Estimated Creat Clear 47.01 Estimated GFR 97 ml/min Glucose 146 H (60-115) mg/dL Calcium 9.3 (8.4-10.6) mg/dL Magnesium 2.2 (1.5-2.6) mg/dL SARS-CoV-2 (PCR) Negative SARS-CoV-2 (Negative) Influenza Type A (PCR) Negative PCR FLU A (Negative) Influenza Type B (PCR) Negative PCR FLU B (Negative) RSV (PCR) Negative PCR RSV (Negative) POC Troponin I 0.00 L (0.01-0.04) ng/ml Imaging Data Chest x-ray: Attestation: I have reviewed the pertinent imaging results. Radiologist's impression: No acute cardiopulmonary findings. Dictated by Martha Mota MD @ 01/26/2025 7:52:41 PM ECG Data Attestation: I personally reviewed and interpreted this ECG as follows: Prior ECG tracings: not available for review Interpretation: Normal sinus rhythm with a rate 65 beats per minute, normal intervals, normal axis, no ST or T-wave abnormalities. Discharge Plan Discharge Clinical Impression: Pain in right thigh Patient Disposition: Home, Self-Care Condition: Stable Instructions: Paresthesia (ED) Additional Instructions: I believe this thigh pain may be from a compressed nerve. Try wearing loose fitting clothes and take NSAIDs for your pain. NSAIDs include medications such as naproxen and ibuprofen. Recommend following up with primary care provider. Return to emergency department for new or worsening symptoms Prescriptions: No Action No Known Home Medications Follow Up/Referrals: Pam Dewitt DO [Primary Care Provider, Family Practice] Stand Alone Forms: [facility] Info Instructions
[2025-01-26 20:03] LABS: Chloride* 106 mmol/L (96-114)
[2025-01-26 20:04] LABS: Potassium* 4.2 mmol/L (3.6-5.1); Sodium* 139 mmol/L (135-149)
[2025-01-26 20:06] LABS: Blood Urea Nitrogen* 17 mg/dL (7-30); Creatinine* 0.7 mg/dL (0.5-1.5); Est. Creatinine Clearance* 47.01; Estimated Glomerular Filt Rate 97 ml/min
[2025-01-26 20:07] LABS: Anion Gap 9 mEq/L (7-15); Calcium* 9.3 mg/dL (8.4-10.6); Carbon Dioxide* 24 mmol/L (20-32); Glucose* 146 mg/dL (60-115)
[2025-01-26 20:10] LABS: Troponin, Point-of-Care* 0.00 ng/ml (0.01-0.04)
[2025-01-26 20:25] LABS: PCR FLU A Negative PCR FLU A (Negative); PCR FLU B Negative PCR FLU B (Negative); PCR RSV Negative PCR RSV (Negative); SARS PCR* Negative SARS-CoV-2 (Negative)
== END 2025-01-26 20:46 | disposition home or self-care (01) ==
PROVIDERS: Emergency Provider Student in an Organized Health Care Education/Training Program; PCP Family Medicine
DX: R07.9 Chest pain, unspecified (principal); M79.651 Pain in right thigh
CPT/HCPCS: 36415; 71046; 80048; 83735; 84484; 85025; 87631; 93005; 99284

== ENCOUNTER 2025-03-16 15:45 | Outpatient (RCR) | payer BC, SELFPAY | END 2025-06-11 08:42 | disposition home or self-care (01) | PROVIDERS: PCP Family Medicine; Visit Provider Family Medicine | DX: M79.651 Pain in right thigh (principal); R10.31 Right lower quadrant pain; M25.551 Pain in right hip; Z51.89 Encounter for other specified aftercare | CPT/HCPCS: 97110; 97140; 97161 ==